=== PATIENT | female | born 1960 | race Caucasian/White ===

== ENCOUNTER → 2017-04-23 | Outpatient (CLI) | payer BC ==
[~2017-04-23] MED LIST: ACTOS15 MG PO; ADVIL200 MG PO; ASPIRIN 32325 MG/TAB PO; ATENOLOL100 MG PO; CARDI-OMEGA1000 MG PO; CENTRUM1 TA1 PO; COZAAR 50MG50 MG/TAB PO; DEXILANT; EFFER-K10 MEQ; EFFEXOR XR75 MG PO; EFFEXOR-XR150 MG PO; FISH OIL1000 MG PO; FOLIC ACID0.4 MG PO; FOLIC ACID0.8 MG PO; GLUCOPHAGE1000 MG PO; HCTZ; KLOR-CON M2020 MEQ PO; LACTOSE 260 MG1 CAP PO; LEVAQUIN 5500 MG/TA1 PO; LEVOXYL0.025 MG; LEVOXYL0.088 MG PO; METFORMIN500 MG PO; NORCO 325 MG-51 TAB PO; OMNICEF 300MG300 MG PO; SYNTHROID0.1 MG/TAB PO; TAMBOCOR 1100 MG/TAB PO; TENORMIN 2525 MG/TAB PO; TENORMIN 5050 MG/TAB PO; VITAMIN D1000 IU PO; VITAMIN D31000 I1 PO; XARELTO20 MG PO; [UNRECOGNIZED DRUG - REMARK]; [UNRECOGNIZED DRUG - REMARK]
== END ==
LOC: COL.RAD 13:25
DX: E04.1 Nontoxic single thyroid nodule (principal)

== ENCOUNTER 2018-03-18 09:32 | Inpatient (IN) | payer BC ==
[~2018-03-18] VITALS: Ht 170.2 cm; Wt 130.3 kg
[~2018-03-18 09:32] MED LIST changes: -FISH OIL1000 MG PO; +OMEGA-3 1000 MG1 CAP PO
[2018-03-18] MEDS ORDERED: LIPITOR 10MG10 MG PO (13:55)
[2018-03-18 13:56] LABS: HEMATOCRIT 41.7 % (37.0-47.0); HEMOGLOBIN 14.1 g/dl (12.5-16.0); MEAN CELL VOLUME 87 fl (80.0-100.0); MEAN CORPUSCULAR HEMOGLOBIN 29 pg (27.0-31.0); MEAN CORPUSCULAR HGB CONC 34 g/dl (33.0-37.0); MEAN PLATELET VOLUME 10.8 fl (7.4-10.4); PLATELET COUNT 301 K/mm3 (130-400); RED BLOOD COUNT 4.79 M/mm3 (4.10-5.30)
[2018-03-18] MEDS ORDERED: CRANBERRY450 MG PO (13:59)
[2018-03-18] MEDS ORDERED: FLONASE NASAL S16 GM NS (14:00)
[2018-03-18] MEDS ORDERED: CLARITIN 1010 MG/TAB PO (14:00)
[2018-03-18] MEDS ORDERED: TURMERIC/CURCUMIN PO (14:00)
[2018-03-18 14:05] LABS: CALCIUM 9.5 mg/dL (8.4-10.2); CREATININE, serum 0.87 mg/dL (0.52-1.25); POTASSIUM 4.2 mmol/L (3.4-5.0)
[2018-03-18 14:06] LABS: INR 1.1 (0.8-3.0); PROTHROMBIN TIME 12.6 SECONDS (9.7-12.8)
[2018-03-18 15:20] VITALS: BP 132/75; PULSE 53; TEMP 98
[2018-03-18 20:29] VITALS: BP 125/70; PULSE 62; TEMP 98.2
[2018-03-18 23:24] VITALS: BP 134/52; PULSE 65; TEMP 98.5
[2018-03-18 23:30] VITALS: BP 143/74; PULSE 63; TEMP 97.7
[2018-03-19] VITALS (10 sets, daily range): BP systolic 114–155; BP diastolic 63–86; PULSE 59–88; TEMP 97.5–98.7
[2018-03-19 07:59] LABS: BASO # 0.1 (0.0-0.2); BASO % 1.4 % (0.0-2.0); EOS # 0.3 (0.0-0.7); EOS % 4.2 % (0-4.0); GRAN % 48.8 % (42.2-75.2); HEMATOCRIT 37.7 % (37.0-47.0); HEMOGLOBIN 12.6 g/dl (12.5-16.0); LYMPH # 2.3 (1.2-3.4); LYMPH % 36.3 % (20.0-51.0); MEAN CELL VOLUME 88 fl (80.0-100.0); MEAN CORPUSCULAR HEMOGLOBIN 29 pg (27.0-31.0); MEAN CORPUSCULAR HGB CONC 33 g/dl (33.0-37.0); MEAN PLATELET VOLUME 10.4 fl (7.4-10.4); MONO # 0.6 (0.1-0.6); PLATELET COUNT 261 K/mm3 (130-400)
[2018-03-19 08:13] LABS: CALCIUM 8.9 mg/dL (8.4-10.2); CREATININE, serum 0.8 mg/dL (0.52-1.25); POTASSIUM 3.9 mmol/L (3.4-5.0)
[2018-03-20 00:24] VITALS: BP 138/76; PULSE 62; TEMP 97.8
[2018-03-20 03:57] VITALS: BP 137/74; PULSE 62; TEMP 97.8
[2018-03-20 07:22] VITALS: BP 132/67; PULSE 58; TEMP 98.1
[2018-03-20 11:15] VITALS: BP 123/71; PULSE 58; TEMP 98.2
[2018-03-20] MEDS ORDERED: TAMBOCOR 1100 MG/TAB PO (11:53)
[2018-03-20] MEDS ORDERED: CEPHALEXIN500 M1 PO (11:56)
== END 2018-03-20 13:24 | disposition home or self-care (01) | DRG 243 ==
LOC: COL.CARD 09:32 → EDSTATUS 13:31 → MEDICAL 13:32
PROVIDERS: Internal Medicine Cardiovascular Disease; Nurse Practitioner
PROC: 0JH606Z Insertion of Pacemaker, Dual Chamber into Chest Subcutaneous Tissue and Fascia, Open Approach (ICD-10-PCS; principal; 2018-03-18)
PROC: 02H63JZ Insertion of Pacemaker Lead into Right Atrium, Percutaneous Approach (ICD-10-PCS; 2018-03-18)
PROC: 02HK3JZ Insertion of Pacemaker Lead into Right Ventricle, Percutaneous Approach (ICD-10-PCS; 2018-03-18)
DX: I49.5 Sick sinus syndrome (principal); D68.51 Activated protein C resistance; E03.9 Hypothyroidism, unspecified; G47.33 Obstructive sleep apnea (adult) (pediatric); I10 Essential (primary) hypertension; Z86.718 Personal history of other venous thrombosis and embolism
CPT/HCPCS: C1785; C1898; J0690; J2250; J2270; J3010; J7030; Q9967

== ENCOUNTER → 2018-05-16 | Outpatient (CLI) | payer BC ==
[~2018-05-16] MED LIST changes: +CEPHALEXIN500 M1 PO; +CLARITIN 1010 MG/TAB PO; +CRANBERRY450 MG PO; +FLONASE NASAL S16 GM NS; +LIPITOR 10MG10 MG PO; +TURMERIC/CURCUMIN PO
== END ==
LOC: COL.RAD 11:03
DX: E04.1 Nontoxic single thyroid nodule (principal)

== ENCOUNTER → 2018-07-10 | Outpatient (CLI) | payer BC | LOC: MC.RAD 15:49 | DX: Z12.31 Encounter for screening mammogram for malignant neoplasm of breast (principal); Z95.0 Presence of cardiac pacemaker ==

== ENCOUNTER → 2018-09-08 | Outpatient (CLI) | payer BC | LOC: COL.RAD 10:00 | DX: R13.12 Dysphagia, oropharyngeal phase (principal) ==

== ENCOUNTER → 2020-02-22 | Outpatient (CLI) | payer BC | LOC: BHSO 10:40 | DX: F33.1 Major depressive disorder, recurrent, moderate (principal) ==

== ENCOUNTER → 2020-06-24 | Outpatient (CLI) | payer BC | LOC: BHSO 16:16 | DX: F33.1 Major depressive disorder, recurrent, moderate (principal) | CPT/HCPCS: G0463 ==

== ENCOUNTER 2020-07-20 09:29 | Day surgery (SDC) | payer BC ==
[~2020-07-20] VITALS: Ht 170.3 cm; Wt 137.0 kg
[~2020-07-20 09:29] MED LIST changes: -CRANBERRY450 MG PO; +THERACRAN650 MG PO; -TURMERIC/CURCUMIN PO; +TURMERIC500 MG PO
[2020-07-20] MEDS ORDERED: TAMBOCOR 1100 MG/TAB PO (09:51)
[2020-07-20] MEDS ORDERED: BRINTELLIX10 PO (09:59)
[2020-07-20 10:00] VITALS: BP 168/89; PULSE 69; TEMP 98.4
--- NOTE | 2020-07-20 11:48 | NUR ---
Pt in SR. Follow up appointment given. Pt ambulated to private car
== END 2020-07-20 11:50 | disposition home or self-care (01) ==
LOC: COL.CAR 09:29
DX: I48.0 Paroxysmal atrial fibrillation (principal); I10 Essential (primary) hypertension; E03.9 Hypothyroidism, unspecified; G47.33 Obstructive sleep apnea (adult) (pediatric); I49.5 Sick sinus syndrome; E78.5 Hyperlipidemia, unspecified; K21.9 Gastro-esophageal reflux disease without esophagitis; M19.90 Unspecified osteoarthritis, unspecified site; F32.9 Major depressive disorder, single episode, unspecified; F41.9 Anxiety disorder, unspecified; Z90.49 Acquired absence of other specified parts of digestive tract; Z79.84 Long term (current) use of oral hypoglycemic drugs; Z79.01 Long term (current) use of anticoagulants; Z85.828 Personal history of other malignant neoplasm of skin; Z20.828 Contact with and (suspected) exposure to other viral communicable diseases; Z53.8 Procedure and treatment not carried out for other reasons

== ENCOUNTER 2020-12-07 08:22 | Inpatient (IN) | payer BC ==
[~2020-12-07] VITALS: Ht 170.2 cm; Wt 132.2 kg
[2020-12-07] VITALS (9 sets, daily range): BP systolic 118–168; BP diastolic 59–100; PULSE 69–95; TEMP 97.3–98.3
[~2020-12-07 08:22] MED LIST changes: +BRINTELLIX10 PO
[2020-12-07] MEDS ORDERED: THE MEDICINE S200 M2 PO (08:51)
[2020-12-07] MEDS ORDERED: VITAMIN D31000 I1 PO (08:52)
[2020-12-07 09:13] LABS: HEMATOCRIT 40.1 % (37.0-47.0); HEMOGLOBIN 13.4 g/dl (12.5-16.0); MEAN CELL VOLUME 90 fl (80.0-100.0); MEAN CORPUSCULAR HEMOGLOBIN 30 pg (27.0-31.0); MEAN CORPUSCULAR HGB CONC 33 g/dl (33.0-37.0); MEAN PLATELET VOLUME 10.9 fl (7.4-10.4); PLATELET COUNT 261 K/mm3 (130-400); RED BLOOD COUNT 4.48 M/mm3 (4.10-5.30); REDCELL DISTRIBUTION WIDTH-CV 13.2 % (11.5-14.5)
[2020-12-07 09:29] LABS: CALCIUM 9.3 mg/dL (8.4-10.2); CREATININE, serum 0.86 (0.52-1.25); MAGNESIUM 1.8 mg/dL (1.6-2.3); POTASSIUM 3.9 mmol/L (3.4-5.0)
[2020-12-07 09:34] LABS: INR 1.5 (0.8-3.0); PROTHROMBIN TIME 16.4 SECONDS (9.7-12.8)
[2020-12-07 09:37] LABS: PARTIAL THROMBOPLASTIN TIME 37.7 SECONDS (26.0-37.0)
[2020-12-07 09:59] LABS: THYROID STIMULATING HORMONE 2.45 uIU/mL (0.465-4.680)
[2020-12-08 03:46] VITALS: BP 117/57; PULSE 70; TEMP 97.3
[2020-12-08 07:37] LABS: BASO # 0.1 (0.0-0.2); BASO % 1.4 % (0.0-2.0); EOS # 0.2 (0.0-0.7); EOS % 2.5 % (0-4.0); GRAN # 3.8 (1.4-6.5); GRAN % 54.3 % (42.2-75.2); HEMATOCRIT 39.4 % (37.0-47.0); HEMOGLOBIN 12.6 g/dl (12.5-16.0); LYMPH # 2.2 (1.2-3.4); LYMPH % 31.9 % (20.0-51.0); MEAN CELL VOLUME 91 fl (80.0-100.0); MEAN CORPUSCULAR HEMOGLOBIN 29 pg (27.0-31.0); MEAN CORPUSCULAR HGB CONC 32 g/dl (33.0-37.0); MEAN PLATELET VOLUME 11.5 fl (7.4-10.4); MONO # 0.7 (0.1-0.6); MONO % 9.5 % (1.7-9.3); PLATELET COUNT 247 K/mm3 (130-400); RED BLOOD COUNT 4.33 M/mm3 (4.10-5.30); REDCELL DISTRIBUTION WIDTH-CV 13.2 % (11.5-14.5)
[2020-12-08 07:44] VITALS: BP 142/83; PULSE 70; TEMP 97.6
[2020-12-08 07:48] LABS: CALCIUM 9.3 mg/dL (8.4-10.2); CREATININE, serum 0.88 (0.52-1.25); POTASSIUM 4.1 mmol/L (3.4-5.0)
[2020-12-08 11:21] VITALS: BP 152/96; PULSE 76; TEMP 97.5
[2020-12-08 16:07] VITALS: BP 140/90; PULSE 76; TEMP 97.5
[2020-12-08 20:00] VITALS: BP 114/65; PULSE 76; TEMP 97.5
[2020-12-08 23:21] VITALS: BP 102/52; PULSE 70; TEMP 97.7
[2020-12-09 03:17] VITALS: BP 120/64; PULSE 70; TEMP 97.3
[2020-12-09 06:46] LABS: BASO # 0.1 (0.0-0.2); BASO % 1.3 % (0.0-2.0); EOS # 0.2 (0.0-0.7); GRAN # 3.6 (1.4-6.5); HEMATOCRIT 39.3 % (37.0-47.0); HEMOGLOBIN 12.8 g/dl (12.5-16.0); LYMPH # 2.3 (1.2-3.4); LYMPH % 33.4 % (20.0-51.0); MEAN CELL VOLUME 90 fl (80.0-100.0); MEAN CORPUSCULAR HEMOGLOBIN 29 pg (27.0-31.0); MEAN CORPUSCULAR HGB CONC 33 g/dl (33.0-37.0); MEAN PLATELET VOLUME 11.5 fl (7.4-10.4); MONO # 0.7 (0.1-0.6); MONO % 9.9 % (1.7-9.3); PLATELET COUNT 248 K/mm3 (130-400); RED BLOOD COUNT 4.36 M/mm3 (4.10-5.30); REDCELL DISTRIBUTION WIDTH-CV 13.2 % (11.5-14.5)
[2020-12-09 07:02] LABS: CALCIUM 9.3 mg/dL (8.4-10.2); CREATININE, serum 0.86 (0.52-1.25); POTASSIUM 3.6 mmol/L (3.4-5.0)
[2020-12-09 07:36] VITALS: BP 152/88; PULSE 71; TEMP 97.5
[2020-12-09] MEDS ORDERED: BETAPACE 120MG120 MG PO (11:41)
[2020-12-09 12:12] VITALS: BP 155/98; PULSE 84; TEMP 97.5
== END 2020-12-09 16:07 | disposition home or self-care (01) | DRG 310 ==
LOC: COL.CAR 08:22 → MEDICAL 09:43 → INPTSU 09:43 → MEDICAL 11:51 → COL.CAR 12-09 08:45 → MEDICAL 12-09 16:07
PROVIDERS: ADMIT Internal Medicine Cardiovascular Disease
PROC: 5A2204Z Restoration of Cardiac Rhythm, Single (ICD-10-PCS; principal; 2020-12-07)
DX: I48.0 Paroxysmal atrial fibrillation (principal)
CPT/HCPCS: J2704

== ENCOUNTER 2021-01-30 07:29 | Day surgery (SDC) | payer BC ==
[~2021-01-30] VITALS: Ht 170.2 cm; Wt 129.8 kg
[2021-01-30] VITALS (9 sets, daily range): BP systolic 122–175; BP diastolic 84–97; PULSE 70–85; TEMP 97.8
[~2021-01-30 07:29] MED LIST changes: +BETAPACE 120MG120 MG PO; +THE MEDICINE S200 M2 PO
[2021-01-30 08:12] LABS: HEMATOCRIT 42.2 % (37.0-47.0); MEAN CELL VOLUME 89 fl (80.0-100.0); MEAN CORPUSCULAR HEMOGLOBIN 30 pg (27.0-31.0); MEAN CORPUSCULAR HGB CONC 33 g/dl (33.0-37.0); MEAN PLATELET VOLUME 10.7 fl (7.4-10.4); PLATELET COUNT 264 K/mm3 (130-400); RED BLOOD COUNT 4.74 M/mm3 (4.10-5.30); REDCELL DISTRIBUTION WIDTH-CV 12.7 % (11.5-14.5)
[2021-01-30 08:17] LABS: CALCIUM 9.4 mg/dL (8.4-10.2); CREATININE, serum 0.75 (0.52-1.25); INR 0.9 (0.8-3.0)
[2021-01-30 08:20] LABS: PARTIAL THROMBOPLASTIN TIME 30.5 SECONDS (26.0-37.0)
[2021-01-30] MEDS ORDERED: ALLEGRA-D 24HR1 T24 PO (08:39)
[2021-01-30] MEDS ORDERED: VITAMIN E 400 U4001 PO (08:43)
[2021-01-30] MEDS ORDERED: MULTIVITAMIN FO1 CAP PO (08:43)
[2021-01-30] MEDS ORDERED: ZIAC 5/6.25MG T1 TAB PO (10:03)
[2021-01-30] MEDS ORDERED: ASPIRIN E.C. 8181 MG PO (10:04)
[2021-01-30] MEDS ORDERED: COZAAR100 MG PO (10:07)
--- NOTE | 2021-01-30 13:05 | NUR ---
DC instructions reviewed with pt and significant other, both express understanding. Air has been removed from TR band in 2ml increments with no bleeding or complications. Rt radial puncture site dressed with 2x2 and bandaid. Pt has been steady on feet when up to use restroom. IV DC'd with catheter intact and bleeding controlled at site. She is assisted out by wheelchair to significant other's car.
== END 2021-01-30 13:05 | disposition home or self-care (01) ==
LOC: COL.CAR 07:29
PROVIDERS: Internal Medicine Cardiovascular Disease
DX: I20.9 Angina pectoris, unspecified (principal); I10 Essential (primary) hypertension; I48.0 Paroxysmal atrial fibrillation; G47.33 Obstructive sleep apnea (adult) (pediatric); D68.2 Hereditary deficiency of other clotting factors; Z20.822 Contact with and (suspected) exposure to COVID-19; Z95.0 Presence of cardiac pacemaker
CPT/HCPCS: C1769; J0360; J1644; J2250; J3010; Q9967

== ENCOUNTER → 2021-10-05 | Outpatient (CLI) | payer BC ==
[~2021-10-05] MED LIST changes: +ALLEGRA-D 24HR1 T24 PO; +ASPIRIN E.C. 8181 MG PO; +COZAAR100 MG PO; +MULTIVITAMIN FO1 CAP PO; +VITAMIN E 400 U4001 PO; +ZIAC 5/6.25MG T1 TAB PO
== END ==
LOC: MC.RAD 07:15
DX: Z12.31 Encounter for screening mammogram for malignant neoplasm of breast (principal); Z95.0 Presence of cardiac pacemaker

== ENCOUNTER → 2022-01-18 | Outpatient (CLI) | payer BC | LOC: COL.RAD 12:29 | DX: G93.89 Other specified disorders of brain (principal); G31.1 Senile degeneration of brain, not elsewhere classified | CPT/HCPCS: A9575 ==